=== PATIENT | male | born 1985 | race Caucasian/White ===

== ENCOUNTER 2023-12-03 16:33 | Emergency (ER) | payer SELFPAY ==
[~2023-12-03] VITALS: Ht 172.7 cm; Wt 68.0 kg
[2023-12-03 16:44] VITALS: O2SAT 100
[2023-12-03 19:43] VITALS: BP 137/80; PULSE 109; RESP 18; TEMP 98.3
== END 2023-12-04 04:02 | disposition home or self-care (01) ==
LOC: ER 16:33
DX: T50.7X1A Poisoning by analeptics and opioid receptor antagonists, accidental (unintentional), initial encounter (principal); X58.XXXA Exposure to other specified factors, initial encounter
CPT/HCPCS: 99291